=== PATIENT | female | born 1975 | race Caucasian/White ===

== ENCOUNTER 2017-01-03 17:40 | Inpatient (IN) | payer OTHER ==
[~2017-01-03] VITALS: Ht 160 cm; Wt 70.3 kg
[2017-01-03] MEDS ORDERED: IV NORMAL SALINE 1000ML BAG 1,000 ML IV ONE (18:00)
[2017-01-03 18:18] LABS: BASO % 1 % (0-3); EOS % 1 % (0-3); HEMATOCRIT 38.8 % (36.0-47.0); HEMOGLOBIN 13.4 g/dL (12.0-15.5); LYMPH # 0.9 x10^3/uL (1.0-4.8); LYMPH % 19 % (24-48); MEAN CORPUSCULAR HEMOGLOBIN 34 pg (25-35); MEAN CORPUSCULAR HGB CONC 34 g/dL (31-37); MEAN CORPUSCULAR VOLUME 98 fL (79-100); MONO % 13 % (0-9); NEUT % 66 % (31-73); PLATELET COUNT 219 x10^3/uL (140-400); RED BLOOD COUNT 3.97 x10^6/uL (3.50-5.40); RED CELL DISTRIBUTION WIDTH 11.9 % (11.5-14.5); WHITE BLOOD COUNT 4.6 x10^3/uL (4.0-11.0)
[2017-01-03 18:30] LABS: BILIRUBIN,URINE NEGATIVE (NEG); GLUCOSE,URINE NEGATIVE (NEG); NITRITE,URINE NEGATIVE (NEG); PROTEIN,URINE NEGATIVE (NEG-TRACE); UROBILINOGEN,URINE 0.2 mg/dL (0.2 mg/dL)
[2017-01-03 18:35] LABS: CALCIUM 8.9 mg/dL (8.5-10.1); CREATININE 0.6 mg/dL (0.6-1.0); GFR 111.3; POTASSIUM 3.5 mmol/L (3.5-5.1)
[2017-01-03 18:36] LABS: BARBITURATES NEG (NEG); BENZODIAZEPINES NEG (NEG); CANNABINOIDS POS (NEG); COCAINE NEG (NEG); METHADONE NEG (NEG); OPIATES NEG (NEG); PHENCYCLIDINE NEG (NEG)
[2017-01-03 18:41] LABS: ALBUMIN 4.1 g/dL (3.4-5.0); ALBUMIN/GLOBULIN RATIO 1.1 (1.0-1.7); TOTAL BILIRUBIN 0.2 mg/dL (0.2-1.0)
--- NOTE | 2017-01-03 18:52 | RAD ---
CT of the head and cervical spine without contrast History:ams, poor historian. Head injury. Altered mental status. Technique: Standard noncontrast images are obtained. Exposure: One or more of the following individualized dose reduction techniques were utilized for this examination: 1. Automated exposure control 2. Adjustment of the mA and/or kV according to patient size 3. Use of iterative reconstruction technique. Comparison: None Head Posterior fossa is unremarkable. No evidence of acute intracranial hemorrhage, mass effect, midline shift or abnormal extra-axial fluid collection. Parra-white matter distinction is intact. Ventricles unremarkable and symmetric Visualized orbits are unremarkable. Visualized paranasal sinuses and mastoids are clear. No acute calvarial abnormality Impression: No evidence of acute intracranial abnormality. Cervical spine Motion degradation obscures the spine, more so at the upper cervical levels. No definite fracture is seen, but could be difficult to exclude. Apparent disruption of the sagittal alignment is thought to be due to spatial misrepresentation due to the movement. No evidence of prevertebral soft tissue swelling or hematoma. IMPRESSION: Cervical spine CT is limited by motion degradation. No obvious fracture or traumatic subluxation, but difficult to exclude. Consider follow-up scan when patient would be able to hold still. Electronically signed by: Alcides Contreras MD (01/03/2017 6:49 PM) [facility]
[2017-01-03 18:53] LABS: BACTERIA,URINE 0 /HPF (0-FEW); RBC,URINE 0 /HPF (0-2); SQUAMOUS EPITHELIAL CELL,UR FEW /LPF; WBC,URINE 0 /HPF (0-4)
[2017-01-03] MEDS: IV NORMAL SALINE 1000ML BAG 1,000 ML IV SCH (20:08)
[2017-01-03] MEDS ORDERED: ONDANSETRON PF 4 MG/2 ML VIAL. IV PRN (20:15)
--- NOTE | 2017-01-03 20:40 | RAD ---
3 view cervical spine radiographs 01/03/2017 AP, lateral and AP open mouth odontoid digital radiographs of the cervical spine were obtained. Comparison is made to the patient's CT scan of the cervical spine performed earlier today. There is mild straightening of the normal cervical lordosis. No fracture or subluxation cervical vertebrae is seen. No prevertebral soft tissue swelling is noted. IMPRESSION: No fracture or subluxation of the cervical vertebrae is seen. Electronically signed by: Juliano Andino MD (01/03/2017 8:37 PM) [facility]
[2017-01-03] MEDS: chlordiazePOXIDE HCL 25 MG CAPSULE PO SCH (20:43)
--- NOTE | 2017-01-03 20:52 | PHYS DOC ---
Past Medical History Past Medical History: No Pertinent History Additional Past Medical Histor: PT DENIES ANY PAST MEDICAL HX Additional Past Surgical Histo: BOY FRIEND REPORTS D&C Alcohol Use: Heavy Drug Use: None Adult General Chief Complaint Chief Complaint: MECHANICAL FALL HPI HPI Patient is a 41 year old female who presents with altered mental status. [place] large amount of alcohol today. Reportedly had several unwitnessed falls and was very confused so she was transported here by EMS for further evaluation. She does not answer questions with coherent answers. Refuses to provide any history. History limited by clinical condition and patient compliance. Review of Systems Review of Systems Unable to obtain due to clinical condition Current Medications Current Medications Current Medications Medications (Trade) Dose Ordered Sig/Xochitl Start Time Stop Time Status Last Admin Dose Admin Sodium Chloride 1,000 ml @ 1,000 mls/hr 1X ONCE 01/03/17 18:00 01/03/17 18:59 DC 01/03/17 18:45 1,000 MLS/HR Allergies Allergies Allergies Coded Allergies Type Severity Reaction Last Updated Verified No Known Drug Allergies 01/03/17 No Physical Exam Physical Exam Constitutional: Well developed, well nourished, no acute distress, non-toxic appearance. Somnolent, awake and agitated at times HENT: Normocephalic, atraumatic, bilateral external ears normal, oropharynx moist, nose normal. Eyes: PERRLA 5 mm bilaterally, EOMI, conjunctiva normal, no discharge. Neck: supple, no stridor. No step-offs in cervical spine Cardiovascular: RRR, no murmurs, no edema. Lungs & Thorax: LCTAB, no wheezing, no respiratory distress. Abdomen: soft, nontender, nondistended. Skin: Warm, dry, no erythema, no rash. laceration to left eyebrow with skin glue in place, applied in prehospital setting. Back: No tenderness. Extremities: No tenderness, no edema. Neurologic: Somnolent at times, at other times awake and agitated speaking coherently but refusing to answer questions, noted to move all extremities. Psychologic: agitated Current Patient Data Vital Signs Vital Signs Date Time Temp Pulse Resp B/P (MAP) Pulse Ox O2 Delivery O2 Flow Rate FiO2 01/03/17 18:00 98.1 92 18 118/80 (93) 100 Room Air 98.1 Lab Values Laboratory Tests Test 01/03/17 18:05 01/03/17 18:10 01/03/17 18:15 White Blood Count 4.6 x10^3/uL (4.0-11.0) Red Blood Count 3.97 x10^6/uL (3.50-5.40) Hemoglobin 13.4 g/dL (12.0-15.5) Hematocrit 38.8 % (36.0-47.0) Mean Corpuscular Volume 98 fL (79-100) Mean Corpuscular Hemoglobin 34 pg (25-35) Mean Corpuscular Hemoglobin Concent 34 g/dL (31-37) Red Cell Distribution Width 11.9 % (11.5-14.5) Platelet Count 219 x10^3/uL (140-400) Neutrophils (%) (Auto) 66 % (31-73) Lymphocytes (%) (Auto) 19 % (24-48) L Monocytes (%) (Auto) 13 % (0-9) H Eosinophils (%) (Auto) 1 % (0-3) Basophils (%) (Auto) 1 % (0-3) Neutrophils # (Auto) 3.0 x10^3uL (1.8-7.7) Lymphocytes # (Auto) 0.9 x10^3/uL (1.0-4.8) L Monocytes # (Auto) 0.6 x10^3/uL (0.0-1.1) Eosinophils # (Auto) 0.0 x10^3/uL (0.0-0.7) Basophils # (Auto) 0.0 x10^3/uL (0.0-0.2) Sodium Level 140 mmol/L (136-145) Potassium Level 3.5 mmol/L (3.5-5.1) Chloride Level 103 mmol/L (98-107) Carbon Dioxide Level 23 mmol/L (21-32) Anion Gap 14 (6-14) Blood Urea Nitrogen 10 mg/dL (7-20) Creatinine 0.6 mg/dL (0.6-1.0) Estimated GFR (Cockcroft-Gault) 111.3 BUN/Creatinine Ratio 17 (6-20) Glucose Level 110 mg/dL (70-99) H Calcium Level 8.9 mg/dL (8.5-10.1) Total Bilirubin 0.2 mg/dL (0.2-1.0) Aspartate Amino Transferase (AST) 31 U/L (15-37) Alanine Aminotransferase (ALT) 27 U/L (14-59) Alkaline Phosphatase 69 U/L (46-116) Total Protein 8.0 g/dL (6.4-8.2) Albumin 4.1 g/dL (3.4-5.0) Albumin/Globulin Ratio 1.1 (1.0-1.7) Ethyl Alcohol Level 415 mg/dL (0-10) *H Urine Collection Type U cath Urine Color Yellow Urine Clarity Clear Urine pH 6.0 Urine Specific [place] <=1.005 Urine Protein Negative mg/dL (NEG-TRACE) Urine Glucose (UA) Negative mg/dL (NEG) Urine Ketones (Stick) Negative mg/dL (NEG) Urine Blood Negative (NEG) Urine Nitrite Negative (NEG) Urine Bilirubin Negative (NEG) Urine Urobilinogen Dipstick 0.2 mg/dL (0.2 mg/dL) Urine Leukocyte Esterase Negative (NEG) Urine RBC 0 /HPF (0-2) Urine WBC 0 /HPF (0-4) Urine Squamous Epithelial Cells Few /LPF Urine Transitional Epithelial Cells Occ /LPF Urine Bacteria 0 /HPF (0-FEW) Urine Opiates Screen Neg (NEG) Urine Methadone Screen Neg (NEG) Urine Barbiturates Neg (NEG) Urine Phencyclidine Screen Neg (NEG) Urine Amphetamine/Methamphetamine Neg (NEG) Urine Benzodiazepines Screen Neg (NEG) Urine Cocaine Screen Neg (NEG) Urine Cannabinoids Screen Pos (NEG) Urine Ethyl Alcohol Pos (NEG) POC Urine HCG, Qualitative Hcg negative (Negative) Laboratory Tests 01/03/17 18:05 Laboratory Tests 01/03/17 18:05 EKG EKG [] Radiology/Procedures Radiology/Procedures PROCEDURE: CT HEAD AND CERVICAL SPINE WO CT of the head and cervical spine without contrast History:ams, poor historian. Head injury. Altered mental status. Technique: Standard noncontrast images are obtained. Exposure: One or more of the following individualized dose reduction techniques were utilized for this examination: 1. Automated exposure control 2. Adjustment of the mA and/or kV according to patient size 3. Use of iterative reconstruction technique. Comparison: None Head Posterior fossa is unremarkable. No evidence of acute intracranial hemorrhage, mass effect, midline shift or abnormal extra-axial fluid collection. Parra-white matter distinction is intact. Ventricles unremarkable and symmetric Visualized orbits are unremarkable. Visualized paranasal sinuses and mastoids are clear. No acute calvarial abnormality Impression: No evidence of acute intracranial abnormality. Cervical spine Motion degradation obscures the spine, more so at the upper cervical levels. No definite fracture is seen, but could be difficult to exclude. Apparent disruption of the sagittal alignment is thought to be due to spatial misrepresentation due to the movement. No evidence of prevertebral soft tissue swelling or hematoma. IMPRESSION: Cervical spine CT is limited by motion degradation. No obvious fracture or traumatic subluxation, but difficult to exclude. Consider follow-up scan when patient would be able to hold still. Electronically signed by: Alcides Contreras MD (01/03/2017 6:49 PM) [facility] DICTATED and SIGNED BY: ALCIDES CONTRERAS MD DATE: 01/03/171839 PROCEDURE: CERVICAL SPINE 2-3V 3 view cervical spine radiographs 01/03/2017 AP, lateral and AP open mouth odontoid digital radiographs of the cervical spine were obtained. Comparison is made to the patient's CT scan of the cervical spine performed earlier today. There is mild straightening of the normal cervical lordosis. No fracture or subluxation cervical vertebrae is seen. No prevertebral soft tissue swelling is noted. IMPRESSION: No fracture or subluxation of the cervical vertebrae is seen. Electronically signed by: Juliano Andino MD (01/03/2017 8:37 PM) [employer] DICTATED and SIGNED BY: JULIANO ANDINO MD DATE: 01/03/172033[] Course & Med Decision Making Course & Med Decision Making Pertinent Labs and Imaging studies reviewed. (See chart for details) The patient presents with altered mental status likely secondary to alcohol intoxication. She was somnolent and confused upon arrival. She was not compliant with placement of cervical spine collar. Obtained CT of her head and C -spine which is negative for intracranial injury. There was likely motion artifact induced abnormality of the cervical spine imaging. Discussed with Dr. Barron who recommended that misalignment could be definitively excluded with plain films of the cervical spine. Before I could discuss plans with the patient , she tried to ambulate to the restroom and had a minor fall here in the emergency department. She did not experience significant injury during the fall but was certainly not appropriate for discharge home. She actually was able to complete imaging of her cervical spine and that was negative for abnormal alignment as interpreted by the radiologist. Given her persistent instability with attempts to ambulate, I did recommend admission to the hospital for ongoing monitoring until she is appropriate for discharge. She agreed with plan of care. Discussed with Dr. Doran who agrees to admit to inpatient status with alcohol withdrawal protocol in place. The patient is being admitted in stable condition. Dragon Disclaimer Dragon Disclaimer This electronic medical record was generated, in whole or in part, using a voice recognition dictation system. Departure Departure Impression: Primary Impression: Altered mental status Additional Impression: Alcohol intoxication Disposition: ADMITTED INPATIENT Condition: STABLE Referrals: NO PCP (PCP) Problem Qualifiers SIGRID KOCH MD Jan 03, 2017 20:52
[2017-01-03] MEDS ORDERED: DIPHTH,PERTUSS(ACELL),TET TOX 0.5 ML DISP.SYRIN. VAX IM ONE (21:00)
[2017-01-03] MEDS: MULTIVIT INFUSN,ADULT 4,VIT K 10 ML, THIAMINE 100 MG, FOLIC ACID 1 MG in IV NORMAL SALI... IV SCH (21:06)
[2017-01-03] MEDS ORDERED: NAPR220C4 PO (22:40)
[2017-01-03 22:46] VITALS: BP 105/65
[2017-01-03 23:00] VITALS: BP 97/71
--- NOTE | 2017-01-04 01:18 | HP ---
ADMIT DATE: 01/03/2017 CHIEF COMPLAINT: Alcohol intoxication. HISTORY OF PRESENT ILLNESS: The patient is a 41-year-old woman with known alcohol history, who presented to the Emergency Room with altered mental status. She apparently had been at the [place] where she had consumed large amounts of alcohol. She had several witnessed falls and was very confused and was therefore brought over by EMS for further evaluation. She is unable to respond in the Emergency Room and refuses to provide any further history. PAST MEDICAL HISTORY: The patient is uncooperative. SOCIAL HISTORY: The patient is uncooperative. ALLERGIES: No known drug allergies. MEDICATIONS: As obtained from pharmacy reconciled. REVIEW OF SYSTEMS: The patient received Ativan due to aggressive and combative behavior and is currently resting, not responding to verbal input. PHYSICAL EXAMINATION: VITAL SIGNS: Show a blood pressure of 105/65, heart rate of 78, respiratory rate at 18 and she is afebrile. GENERAL: This is a 41-year-old well-nourished woman, sedated, resting comfortably. HEENT: Shows moist oral mucosa. NECK: Supple. LUNGS: Clear. HEART: Regular rate and rhythm. ABDOMEN: Has positive bowel sounds and soft. EXTREMITIES: Show no edema. SKIN: Warm, soft and dry. LABORATORY DATA: CBC with a WBC of 4.6, hemoglobin 13.4 and platelets of 219. Chemistries with a BUN and creatinine of 10 and 0.6. Normal electrolytes. Normal LFTs. Tox screen positive for alcohol with a blood level at 415. Urine also positive for cannabinoids. IMAGING DATA: Cervical CT spine, no fracture or subluxation of the cervical vertebrae and CT of head, no evidence of acute intracranial abnormality and the cervical spinous motion is limited by motion degradation and no fracture or traumatic subluxation. ASSESSMENT AND PLAN: The patient is a 41-year-old woman with severe alcohol intoxication. She is unable to walk and is therefore admitted to the hospital. She received Ativan for combative behavior and has 1:1 sitter at this time. She will be started on Librium, alcohol withdrawal prevention protocol. She will receive banana bag, IV fluids and H2 blockers IV. BIB PARADA MD DR: SHARYN/sriram JOB#: [id number] / [id number] MTDD
[2017-01-04] MEDS: chlordiazePOXIDE HCL 25 MG CAPSULE PO SCH ×2 (02:27→08:24)
[2017-01-04 02:28] VITALS: BP 90/55
[2017-01-04 05:26] LABS: BASO % 1 % (0-3); EOS % 0 % (0-3); HEMATOCRIT 33.7 % (36.0-47.0); HEMOGLOBIN 11.5 g/dL (12.0-15.5); LYMPH # 0.6 x10^3/uL (1.0-4.8); LYMPH % 14 % (24-48); MEAN CORPUSCULAR HEMOGLOBIN 33 pg (25-35); MEAN CORPUSCULAR HGB CONC 34 g/dL (31-37); MEAN CORPUSCULAR VOLUME 97 fL (79-100); MONO % 14 % (0-9); NEUT % 71 % (31-73); PLATELET COUNT 176 x10^3/uL (140-400); RED BLOOD COUNT 3.48 x10^6/uL (3.50-5.40); WHITE BLOOD COUNT 4.3 x10^3/uL (4.0-11.0)
[2017-01-04 05:42] LABS: CALCIUM 7.5 mg/dL (8.5-10.1); CREATININE 0.6 mg/dL (0.6-1.0); GFR 111.3; POTASSIUM 3.8 mmol/L (3.5-5.1)
[2017-01-04 07:00] VITALS: BP 97/60
[2017-01-04] MEDS: IV NORMAL SALINE 1000ML BAG 1,000 ML IV SCH (07:08)
[2017-01-04] MEDS ORDERED: ENOXAPARIN 40 MG/0.4 ML SYRINGE. SQ SCH (09:00)
[2017-01-04] MEDS: MULTIVIT INFUSN,ADULT 4,VIT K 10 ML, THIAMINE 100 MG, FOLIC ACID 1 MG in IV NORMAL SALI... IV SCH (09:00)
--- NOTE | 2017-01-04 09:02 | PDOC3 ---
Discharge Summary Visit Information Date of Admission: Jan 03, 2017 Date of Discharge: Jan 04, 2017 Admitting Diagnosis Comment: EtOH intox Final Diagnosis toxic encephalopathy Acute EtOH intoxication, level > 400 apparent EtOH abuse and possible dependence Problems Medical Problems: (1) Alcohol intoxication Status: Acute (2) Altered mental status Status: Acute Brief Hospital Course Allergies Allergies Coded Allergies Type Severity Reaction Last Updated Verified No Known Drug Allergies 01/03/17 No Vital Signs Vital Signs Date Time Temp Pulse Resp B/P (MAP) Pulse Ox O2 Delivery O2 Flow Rate FiO2 01/04/17 08:00 Room Air 01/04/17 07:00 97.9 81 20 97/60 (72) 96 97.9 Lab Results Laboratory Tests Test 01/03/17 18:05 01/03/17 18:10 01/03/17 18:15 01/04/17 05:00 White Blood Count 4.6 x10^3/uL (4.0-11.0) 4.3 x10^3/uL (4.0-11.0) Red Blood Count 3.97 x10^6/uL (3.50-5.40) 3.48 x10^6/uL (3.50-5.40) Hemoglobin 13.4 g/dL (12.0-15.5) 11.5 g/dL (12.0-15.5) Hematocrit 38.8 % (36.0-47.0) 33.7 % (36.0-47.0) Mean Corpuscular Volume 98 fL (79-100) 97 fL (79-100) Mean Corpuscular Hemoglobin 34 pg (25-35) 33 pg (25-35) Mean Corpuscular Hemoglobin Concent 34 g/dL (31-37) 34 g/dL (31-37) Red Cell Distribution Width 11.9 % (11.5-14.5) 12.0 % (11.5-14.5) Platelet Count 219 x10^3/uL (140-400) 176 x10^3/uL (140-400) Neutrophils (%) (Auto) 66 % (31-73) 71 % (31-73) Lymphocytes (%) (Auto) 19 % (24-48) 14 % (24-48) Monocytes (%) (Auto) 13 % (0-9) 14 % (0-9) Eosinophils (%) (Auto) 1 % (0-3) 0 % (0-3) Basophils (%) (Auto) 1 % (0-3) 1 % (0-3) Neutrophils # (Auto) 3.0 x10^3uL (1.8-7.7) 3.1 x10^3uL (1.8-7.7) Lymphocytes # (Auto) 0.9 x10^3/uL (1.0-4.8) 0.6 x10^3/uL (1.0-4.8) Monocytes # (Auto) 0.6 x10^3/uL (0.0-1.1) 0.6 x10^3/uL (0.0-1.1) Eosinophils # (Auto) 0.0 x10^3/uL (0.0-0.7) 0.0 x10^3/uL (0.0-0.7) Basophils # (Auto) 0.0 x10^3/uL (0.0-0.2) 0.0 x10^3/uL (0.0-0.2) Sodium Level 140 mmol/L (136-145) 144 mmol/L (136-145) Potassium Level 3.5 mmol/L (3.5-5.1) 3.8 mmol/L (3.5-5.1) Chloride Level 103 mmol/L (98-107) 111 mmol/L (98-107) Carbon Dioxide Level 23 mmol/L (21-32) 23 mmol/L (21-32) Anion Gap 14 (6-14) 10 (6-14) Blood Urea Nitrogen 10 mg/dL (7-20) 9 mg/dL (7-20) Creatinine 0.6 mg/dL (0.6-1.0) 0.6 mg/dL (0.6-1.0) Estimated GFR (Cockcroft-Gault) 111.3 111.3 BUN/Creatinine Ratio 17 (6-20) Glucose Level 110 mg/dL (70-99) 84 mg/dL (70-99) Calcium Level 8.9 mg/dL (8.5-10.1) 7.5 mg/dL (8.5-10.1) Total Bilirubin 0.2 mg/dL (0.2-1.0) Aspartate Amino Transf (AST/SGOT) 31 U/L (15-37) Alanine Aminotransferase (ALT/SGPT) 27 U/L (14-59) Alkaline Phosphatase 69 U/L (46-116) Total Protein 8.0 g/dL (6.4-8.2) Albumin 4.1 g/dL (3.4-5.0) Albumin/Globulin Ratio 1.1 (1.0-1.7) Ethyl Alcohol Level 415 mg/dL (0-10) Urine Collection Type U cath Urine Color Yellow Urine Clarity Clear Urine pH 6.0 Urine Specific [place] <=1.005 Urine Protein Negative mg/dL (NEG-TRACE) Urine Glucose (UA) Negative mg/dL (NEG) Urine Ketones (Stick) Negative mg/dL (NEG) Urine Blood Negative (NEG) Urine Nitrite Negative (NEG) Urine Bilirubin Negative (NEG) Urine Urobilinogen Dipstick 0.2 mg/dL (0.2 mg/dL) Urine Leukocyte Esterase Negative (NEG) Urine RBC 0 /HPF (0-2) Urine WBC 0 /HPF (0-4) Urine Squamous Epithelial Cells Few /LPF Urine Transitional Epithelial Cells Occ /LPF Urine Bacteria 0 /HPF (0-FEW) Urine Opiates Screen Neg (NEG) Urine Methadone Screen Neg (NEG) Urine Barbiturates Neg (NEG) Urine Phencyclidine Screen Neg (NEG) Urine Amphetamine/Methamphetamine Neg (NEG) Urine Benzodiazepines Screen Neg (NEG) Urine Cocaine Screen Neg (NEG) Urine Cannabinoids Screen Pos (NEG) Urine Ethyl Alcohol Pos (NEG) Bedside Urine HCG, Qualitative Hcg negative (Negative) Laboratory Tests Test 01/03/17 18:05 01/03/17 18:10 01/03/17 18:15 01/04/17 05:00 White Blood Count 4.6 x10^3/uL (4.0-11.0) 4.3 x10^3/uL (4.0-11.0) Red Blood Count 3.97 x10^6/uL (3.50-5.40) 3.48 x10^6/uL (3.50-5.40) Hemoglobin 13.4 g/dL (12.0-15.5) 11.5 g/dL (12.0-15.5) Hematocrit 38.8 % (36.0-47.0) 33.7 % (36.0-47.0) Mean Corpuscular Volume 98 fL (79-100) 97 fL (79-100) Mean Corpuscular Hemoglobin 34 pg (25-35) 33 pg (25-35) Mean Corpuscular Hemoglobin Concent 34 g/dL (31-37) 34 g/dL (31-37) Red Cell Distribution Width 11.9 % (11.5-14.5) 12.0 % (11.5-14.5) Platelet Count 219 x10^3/uL (140-400) 176 x10^3/uL (140-400) Neutrophils (%) (Auto) 66 % (31-73) 71 % (31-73) Lymphocytes (%) (Auto) 19 % (24-48) 14 % (24-48) Monocytes (%) (Auto) 13 % (0-9) 14 % (0-9) Eosinophils (%) (Auto) 1 % (0-3) 0 % (0-3) Basophils (%) (Auto) 1 % (0-3) 1 % (0-3) Neutrophils # (Auto) 3.0 x10^3uL (1.8-7.7) 3.1 x10^3uL (1.8-7.7) Lymphocytes # (Auto) 0.9 x10^3/uL (1.0-4.8) 0.6 x10^3/uL (1.0-4.8) Monocytes # (Auto) 0.6 x10^3/uL (0.0-1.1) 0.6 x10^3/uL (0.0-1.1) Eosinophils # (Auto) 0.0 x10^3/uL (0.0-0.7) 0.0 x10^3/uL (0.0-0.7) Basophils # (Auto) 0.0 x10^3/uL (0.0-0.2) 0.0 x10^3/uL (0.0-0.2) Sodium Level 140 mmol/L (136-145) 144 mmol/L (136-145) Potassium Level 3.5 mmol/L (3.5-5.1) 3.8 mmol/L (3.5-5.1) Chloride Level 103 mmol/L (98-107) 111 mmol/L (98-107) Carbon Dioxide Level 23 mmol/L (21-32) 23 mmol/L (21-32) Anion Gap 14 (6-14) 10 (6-14) Blood Urea Nitrogen 10 mg/dL (7-20) 9 mg/dL (7-20) Creatinine 0.6 mg/dL (0.6-1.0) 0.6 mg/dL (0.6-1.0) Estimated GFR (Cockcroft-Gault) 111.3 111.3 BUN/Creatinine Ratio 17 (6-20) Glucose Level 110 mg/dL (70-99) 84 mg/dL (70-99) Calcium Level 8.9 mg/dL (8.5-10.1) 7.5 mg/dL (8.5-10.1) Total Bilirubin 0.2 mg/dL (0.2-1.0) Aspartate Amino Transf (AST/SGOT) 31 U/L (15-37) Alanine Aminotransferase (ALT/SGPT) 27 U/L (14-59) Alkaline Phosphatase 69 U/L (46-116) Total Protein 8.0 g/dL (6.4-8.2) Albumin 4.1 g/dL (3.4-5.0) Albumin/Globulin Ratio 1.1 (1.0-1.7) Ethyl Alcohol Level 415 mg/dL (0-10) Urine Collection Type U cath Urine Color Yellow Urine Clarity Clear Urine pH 6.0 Urine Specific [place] <=1.005 Urine Protein Negative mg/dL (NEG-TRACE) Urine Glucose (UA) Negative mg/dL (NEG) Urine Ketones (Stick) Negative mg/dL (NEG) Urine Blood Negative (NEG) Urine Nitrite Negative (NEG) Urine Bilirubin Negative (NEG) Urine Urobilinogen Dipstick 0.2 mg/dL (0.2 mg/dL) Urine Leukocyte Esterase Negative (NEG) Urine RBC 0 /HPF (0-2) Urine WBC 0 /HPF (0-4) Urine Squamous Epithelial Cells Few /LPF Urine Transitional Epithelial Cells Occ /LPF Urine Bacteria 0 /HPF (0-FEW) Urine Opiates Screen Neg (NEG) Urine Methadone Screen Neg (NEG) Urine Barbiturates Neg (NEG) Urine Phencyclidine Screen Neg (NEG) Urine Amphetamine/Methamphetamine Neg (NEG) Urine Benzodiazepines Screen Neg (NEG) Urine Cocaine Screen Neg (NEG) Urine Cannabinoids Screen Pos (NEG) Urine Ethyl Alcohol Pos (NEG) Bedside Urine HCG, Qualitative Hcg negative (Negative) Brief Hospital Course Ms. Byrd is a 41 old female, [place], very [place], multiple falls, not witnessed, combative in ER, given Aitvan, banana bag, 3 liters IV fluid signed AMA at 0830, I discharged at 9am, she told be she once had an EtOH level 1020, i disputed this for about 10 seconds, then allowed her to continue. She seems proud of her ability to push EtOH intake limits. She denied trying to hurt herself, and only wanted to get to work today, as she has bills to pay declined EtOH cessation therapy and not interested in intervention Discharge Information Condition at Discharge: Improved Follow Up: Weeks Disposition/Orders: D/C to Home Scheduled Naproxen Sodium (Aleve), 220 MG PO BID, (Reported) Patient Instructions Patient Instructions > 30 min RACHAEL VELAZCO MD Jan 04, 2017 09:02
== END 2017-01-04 09:15 | disposition home or self-care (01) | DRG 896 ==
LOC: EDBD 17:40 → ER 17:40 → 5 NORTH 19:53
PROVIDERS: ADMIT Internal Medicine Hematology & Oncology; ATTEND Internal Medicine Hematology & Oncology
DX: F10.229 Alcohol dependence with intoxication, unspecified (principal); G92 Toxic encephalopathy; R29.6 Repeated falls; Y90.8 Blood alcohol level of 240 mg/100 ml or more
CPT/HCPCS: 36415; 70450; 72040; 72125; 80048; 80053; 80307; 81001; 81025; 85025; G0480; J2060; J7030; G0479